=== PATIENT | male | born 1990 | race American Indian/Alaskan Native ===

== ENCOUNTER 2019-04-01 22:47 | Emergency (ER) | payer SELFPAY ==
--- NOTE | 2019-04-02 01:50 | Emergency Department Report ---
HPI - General Chief Complaint: Urogenital-Male Time Seen by Provider: 04/02/19 01:39 - HPI HPI: Room 24 The patient is a 28-year-old male presented with a chief complaint of polyuria. Patient states he noticed himself urinating frequently yesterday. The patient states he would have to urinate every 20-30 minutes. Patient denies dysuria, hematuria or penile discharge. Patient denies polydipsia or fever Location: [See above] Duration: [See above] Quality: [See above] Severity: [See above] Timing: [See above] Context: [See above] Modifying factors: [See above] Associated signs and symptoms: [see above] ED Past Medical Hx - Past Medical History Previous Medical History?: No - Surgical History Past Surgical History?: No - Family History Family history: no significant - Social History Smoking Status: Never Smoker Substance Use Type: None (denies illicit drug use), Alcohol (occasional) - Medications Home Medications: Home Medications Medication Instructions Recorded Confirmed Last Taken Type Ibuprofen [Motrin 800 MG tab] 800 mg PO Q8H PRN #30 tablet 09/20/14 Unknown Rx DOXYCYCLINE Hyclate [Vibramycin 100 mg PO Q12HR #20 capsule 03/10/15 Unknown Rx CAP] Ibuprofen [Motrin] 600 mg PO Q8H PRN #40 tablet 03/10/15 Unknown Rx Sulfamethoxazole/Trimethoprim 1 each PO BID #14 tablet 04/02/19 Unknown Rx [Bactrim DS TAB] ED Review of Systems ROS: Stated complaint: BLADDER PAIN Other details as noted in HPI Constitutional: denies: fever Eyes: denies: eye pain ENT: denies: throat pain Respiratory: no symptoms reported Cardiovascular: denies: chest pain Endocrine: increased urine. denies: increased hunger, increased thirst Gastrointestinal: denies: abdominal pain Genitourinary: denies: dysuria, hematuria Musculoskeletal: denies: back pain Neurological: denies: headache Physical Exam - Physical Exam Vital Signs: Vital Signs 04/01/19 04/02/19 22:51 01:20 Temperature 97.5 F L Pulse Rate 67 Respiratory 18 18 Rate Blood Pressure 141/85 O2 Sat by Pulse 98 99 Oximetry Physical Exam: GENERAL: The patient is well-developed well-nourished male lying on stretcher not appearing to be in acute distress. [] HEENT: Normocephalic. Atraumatic. Extraocular motions are intact. Patient has moist mucous membranes. NECK: Supple. Trachea midline CHEST/LUNGS: Clear to auscultation. There is no respiratory distress noted. HEART/CARDIOVASCULAR: Regular. There is no tachycardia. There is no gallop rub or murmur. ABDOMEN: Abdomen is soft, nontender. Patient has normal bowel sounds. There is no abdominal distention. SKIN: There is no rash. There is no edema. There is no diaphoresis. NEURO: The patient is awake, alert, and oriented. The patient is cooperative. The patient has normal speech MUSCULOSKELETAL: There is no evidence of acute injury. ED Course Vital Signs 04/01/19 04/02/19 22:51 01:20 Temperature 97.5 F L Pulse Rate 67 Respiratory 18 18 Rate Blood Pressure 141/85 O2 Sat by Pulse 98 99 Oximetry ED Medical Decision Making - Lab Data Laboratory Tests 04/02/19 04/02/19 01:40 02:42 POC Glucose 90 Urine Color Yellow Urine Turbidity Clear Urine pH 5.0 Ur Specific Pansey 1.021 Urine Protein <15 mg/dl Urine Glucose (UA) Neg Urine Ketones Neg Urine Blood Neg Urine Nitrite Neg Urine Bilirubin Neg Urine Urobilinogen < 2.0 Ur Leukocyte Esterase Tr Urine WBC (Auto) < 1.0 Urine RBC (Auto) 1.0 Urine Mucus Few - Differential Diagnosis diabetes mellitus, diabetes insipidus, UTI Critical care attestation.: If time is entered above; I have spent that time in minutes in the direct care of this critically ill patient, excluding procedure time. ED Disposition Clinical Impression: Urinary frequency Disposition: -01 TO HOME OR SELFCARE Is pt being admited?: No Does the pt Need Aspirin: No Condition: Stable Additional Instructions: Return to the emergency department should you develop worsening symptoms, inability to tolerate food or liquids, high fever or any other concerns Prescriptions: Sulfamethoxazole/Trimethoprim [Bactrim DS TAB] 1 each PO BID #14 tablet Referrals: JOAN HERNANDEZ DO [Staff Physician] - 3-5 Days Time of Disposition: 03:41
[2019-04-02 02:55] LABS: Bilirubin,Urine NEG (Negative); Blood,Urine NEG (Negative); Color,Urine Yellow (Yellow); Mucus,Urine FEW /HPF; Protein,Urine <15 mg/dL mg/dL (Negative); Urobilinogen,Urine < 2.0 mg/dL (<2.0); WBC,Urine < 1.0 /HPF (0.0-6.0)
[2019-04-02 04:02] VITALS: BP 138/82
== END 2019-04-02 03:59 | disposition home or self-care (01) ==
LOC: ED 22:47
DX: R35.0 Frequency of micturition (principal); F10.10 Alcohol abuse, uncomplicated; Z79.899 Other long term (current) drug therapy
CPT/HCPCS: 81001; 82962

== ENCOUNTER 2021-06-18 04:04 | Emergency (ER) | payer SELFPAY ==
[2021-06-18 05:07] VITALS: BP 130/79
== END 2021-06-18 05:20 | disposition left against medical advice (07) ==
LOC: ED 04:04
DX: R68.84 Jaw pain (principal); Z53.21 Procedure and treatment not carried out due to patient leaving prior to being seen by health care provider